=== PATIENT | female | born 1965 | race African-American/Black ===

== ENCOUNTER 2017-09-15 16:59 | Emergency (ER) | payer BC ==
--- NOTE | 2017-09-15 19:40 | RAD ---
RADIOGRAPH CHEST 1 VIEW: Date: 09/15/17 Time: 5:47 p.m. HISTORY: 52-year-old female with cough and dyspnea. COMPARISON: None available. FINDINGS: The cardiac size is at the upper limits of normal. There is pulmonary vascular engorgement. No yari pulmonary alveolar edema, air space density, or pneumothorax. No effacement of lateral costophrenic a ngles. IMPRESSION: 1. Pulmonary vascular congestion. 2. No evidence of pneumonia. SYLVIE [] POS: ESPERANZA
== END 2017-09-15 18:46 | disposition home or self-care (01) ==
LOC: ERS 16:59
DX: J18.9 Pneumonia, unspecified organism (principal); I10 Essential (primary) hypertension; F17.210 Nicotine dependence, cigarettes, uncomplicated
CPT/HCPCS: 71045

== ENCOUNTER 2018-07-22 10:17 | Observation (INO) | payer BC, SELFPAY ==
--- NOTE | 2018-07-22 11:04 | RAD ---
TWO VIEWS CHEST: Comparison: 09-15-17 History: Hypertension. FINDINGS: Two views of the chest show normal sized cardiomediastinal silhouette. There is no evidence of consol idation, mass, or pleural effusion. Degenerative changes are seen in the spine. IMPRESSION: No evidence of acute cardiopulmonary disease. POS: TPC
[2018-07-22 11:47] LABS: #Basophils 0.1 thou/uL (0.0-0.2); #Eosinphils 0.1 thou/uL (0.0-0.7); #Lymphocytes 2.3 thou/uL (1.20-3.40); #Monocytes 0.5 thou/uL (0.11-0.59); #Neutrophils 2.8 thou/uL (1.40-6.50); %Eosinophils 2.6 % (0.0-10.0); %Monocytes 8.8 % (0.0-10.0); %Neutrophils 48.6 % (42.0-75.0); Hemoglobin 14.2 g/dL (12.0-16.0); Mean Corpuscular HGB CONC 33.1 g/dL (32.0-36.0); Mean Corpuscular Hemoglobin 28.2 pg (27.0-31.0); Mean Corpuscular Volume 85.2 fL (78.0-98.0); Mean Platelet Volume 8.2 fL (7.4-10.4); Platelet Count 230 thou/uL (130-400); RBC Distribution Width 11.8 % (11.5-14.5); Red Blood Cell (RBC) Count 5.04 mill/uL (4.20-5.40); White Blood Cell (WBC) Count 5.8 thou/uL (4.8-10.8)
[2018-07-22 11:56] LABS: ALT (SGPT) 21 U/L (8-55); AST (SGOT) 18 U/L (5-34); Albumin 4.5 g/dL (3.5-5.0); Alkaline Phosphatase 102 U/L (40-150); Anion Gap 13 mmol/L (10-20); BUN (Urea Nitrogen) 13 mg/dL (9.8-20.1); Bilirubin, Total 0.4 mg/dL (0.2-1.2); Calc. Creatinine Clearance 0 mL/min (70-130); Calcium 9.7 mg/dL (7.8-10.44); Carbon Dioxide 24 mmol/L (22-29); Chloride 103 mmol/L (98-107); Estimated GFR-MDRD Greater than 90; Globulin 3.5 g/dL (2.4-3.5); Glucose 107 mg/dL (70-105); Potassium 3.7 mmol/L (3.5-5.1); Sodium 136 mmol/L (136-145)
[2018-07-22] MEDS ORDERED: Nitroglycerin 0.4 MG TAB 1 EACH ONE (11:57)
[2018-07-22] MEDS ORDERED: Aspirin 81 mg Enteric Coated Tablet ONE (11:57)
[2018-07-22 12:08] LABS: CK (CPK) 84 U/L (29-168)
[2018-07-22] MEDS ORDERED: Nitroglycerin 2% Ointment 1 INCH/1 GM Packet ONE (13:24)
[2018-07-22 15:01] LABS: Troponin I Less than 0.010 ng/mL (< 0.028)
[2018-07-22] MEDS ORDERED: Amlodipine 5 MG TAB PO SCH (17:15)
[2018-07-22 18:01] LABS: Troponin I Less than 0.010 ng/mL (< 0.028)
[2018-07-22] MEDS ORDERED: Acetaminophen 500 MG TAB PO PRN (20:53)
[2018-07-22] MEDS ORDERED: Acetaminophen 500 MG TAB ONE (21:10)
[2018-07-22 22:08] VITALS: BMI 36.6
--- NOTE | 2018-07-22 23:39 | HP ---
CHIEF COMPLAINT: Hypertension. HISTORY OF PRESENT ILLNESS: The patient is a pleasant 52-year-old female with past medical history significant for hypertension, noncompliant with her medications throughout the past year due to lack of insurance, hyperlipidemia, tobacco abuse, and family history of coronary artery disease, who presented to the hospital with complaints of high blood pressure. The patient was at work when she began feeling somewhat dizzy and "woozy." The patient works at [employer] and reported to the on-site nurse to have her blood pressure taken. At that time, her blood pressure was in the 190 systolic. She was instructed to lie down to see if her blood pressure improved. Repeat blood pressure showed a systolic reading of 198/101. The patient continued to feel somewhat dizzy, and was instructed to present to the emergency department for further workup and treatment. The patient did deny any chest pain or shortness of breath. She has had no palpitations. Upon arrival to the ED, workup included an EKG, which showed normal sinus rhythm with a ventricular rate of 73 beats per minute, and T-wave inversions in the lateral leads consistent with ischemia. She was given aspirin, sublingual nitroglycerin, and nitroglycerin paste, with good response in her blood pressure. Upon my interview with the patient, her blood pressure had trended down to 143/78, and she was resting comfortably. Her presenting symptoms of dizziness and presyncope have resolved. The patient states that she had previously been treated for hypertension, and believes that her medication was amlodipine. Previously, she had been on lisinopril, which did cause a cough for her. She also remembers being on a diuretic which I assume is hydrochlorothiazide. Due to lack of insurance, she had let these prescriptions laps, but continued to take the remaining pills p.r.n. when she felt her blood pressure was high or when she felt dizzy. REVIEW OF SYSTEMS: A 12-point review of systems was performed and is negative except that stated above. The patient denies any sick contacts. She has had no blood in her urine or stool. No fevers, chills, or recent illnesses. ALLERGIES: LISINOPRIL WHICH CAUSES A COUGH. HOME MEDICATIONS: The patient is taking no prescription medications at this time. PAST MEDICAL HISTORY: Significant for hypertension and hyperlipidemia. PAST SURGICAL HISTORY: Lipoma which was surgically excised from her back. SOCIAL HISTORY: The patient works at [employer], but previously had been out of work for about 6 months. She denies any illicit drug use. She occasionally drinks alcohol on the weekends. She does admit to tobacco abuse with a half to one pack per day current habit. FAMILY HISTORY: Significant for coronary artery disease in both her mother and her father who had MIs in the past and both had stents placed. They are no longer living. She had a brother who of complications from type 2 diabetes mellitus, she has a sister who also has coronary artery disease. CODE STATUS: The patient is a full code. This was discussed with the patient at length. PHYSICAL EXAMINATION: VITAL SIGNS: Blood pressure 143/78, pulse 73, O2 saturation 98% on room air. GENERAL: The patient is a moderately obese female, resting comfortably in bed, in no acute distress. HEENT: Head, atraumatic and normocephalic. Mucous membranes are moist. Extraocular movements intact. NECK: Trachea is midline. No JVD. No carotid bruits. CV: S1 and S2. Regular rate and rhythm. No appreciable murmurs, rubs, or gallops. LUNGS: Regular respiratory rate and pattern. Clear to auscultation bilaterally. ABDOMEN: Positive bowel sounds. Soft, nontender. No organomegaly. EXTREMITIES: +2 DP pulses bilaterally. Both lower extremities are warm and well perfused. No edema. SKIN: Warm and dry. No rashes. NEUROLOGIC: Cranial nerves 2 through 12 are grossly intact, the patient is nonfocal. LABORATORY RESULTS: White blood cell count 5.8, hemoglobin 14.2, hematocrit 43, platelet count is 230. Sodium 136, potassium 3.7, chloride 103, anion gap 13, BUN 13, creatinine 0.7, glucose 107. AST, ALT, and alkaline phosphatase within normal limits. Troponin negative x2. IMAGING: EKG as outlined in HPI shows sinus rhythm with ST depression consistent with lateral ischemia. Two-view chest x-ray shows no evidence of acute cardiopulmonary disease. ASSESSMENT: 1. Symptomatic hypertensive urgency. 2. Abnormal EKG with lateral ischemia. 3. Hyperlipidemia. 4. Tobacco abuse. 5. Family history of coronary artery disease. PLAN: The patient will be admitted for ACS rule out. We will continue to aggressively control her blood pressure, and reinstitute amlodipine 5 mg daily with the first dose being given now. We will also restart hydrochlorothiazide. Given her numerous risk factors and abnormal EKG, we will proceed with nuclear stress test. We will obtain fasting lipids in the morning along with A1c. Further recommendations based on hospital course. Job ID: [id number]
[2018-07-22] MEDS ORDERED: hydrALAZINE 20 MG/ML VIAL SLOW IVP PRN (23:55)
[2018-07-23 06:00] LABS: Hemoglobin A1c 5.4 % (4.0-6.0)
[2018-07-23 06:16] LABS: Cardiac Risk 3.7 (Less than 4.5)
[2018-07-23] MEDS ORDERED: ADENOSINE 60 MG/20 ML VIAL ONE (08:22)
[2018-07-23] MEDS ORDERED: Hydrochlorothiazide 25 MG TAB PO SCH (09:00)
[2018-07-23] MEDS ORDERED: Amlodipine 5 MG TAB PO SCH ×2 (09:00→14:30)
[2018-07-23] MEDS ORDERED: Losartan 25 MG TAB PO SCH (14:30)
--- NOTE | 2018-07-23 19:10 | PRG ---
DATE OF SERVICE: 07/23/2018 SUBJECTIVE: The patient is a pleasant 52-year-old female with past medical history significant for hypertension, previously noncompliant with her medications in the past year secondary to lack of insurance, hyperlipidemia, tobacco abuse, family history of coronary artery disease, who presented to the hospital with complaints of dizziness and high blood pressure. The patient has been admitted to the hospital with accelerated hypertension as well as abnormal EKG. She completed the first part of the imaging for her nuclear stress test this morning. Her blood pressure continues to be significantly elevated in the 170s to 180s, although the patient denies any headache or dizziness at that time. She denies any chest pain or shortness of breath. No nausea or vomiting. She is tolerating a full diet well. Denies any fever or chills. OBJECTIVE: VITAL SIGNS: Blood pressure 171/81, pulse is 85, O2 saturation is 100% on room air, and temperature 98.8. GENERAL: The patient is a moderately obese female, resting comfortably in bed, in no acute distress. HEENT: Head, atraumatic and normocephalic. Mucous membranes are moist. Extraocular movements intact. NECK: Trachea is midline. No JVD. No carotid bruits. CV: S1 and S2. Regular rate and rhythm. No appreciable murmurs, rubs, or gallops. LUNGS: Regular respiratory rate and pattern. Clear to auscultation bilaterally. ABDOMEN: Positive bowel sounds. Soft and nontender. No organomegaly. EXTREMITIES: +2 DP pulses bilaterally. Both lower extremities are warm and well perfused. No edema. SKIN: Warm and dry. No rashes. NEUROLOGIC: Cranial nerves 2 through 12 are intact. The patient is nonfocal. LABORATORY DATA: Hemoglobin A1c is 5.4%. Troponin was negative x3. Triglycerides 72, cholesterol 191, LDL 126, and HDL 51. ASSESSMENT: 1. Symptomatic accelerated hypertension at presentation, symptomatically improved, although blood pressures remain elevated. 2. Abnormal EKG with lateral ischemia. 3. Hyperlipidemia. 4. Tobacco abuse. 5. Family history of coronary artery disease. PLAN: We will continue to titrate the patient's blood pressure medications, and increase amlodipine to 10 mg daily. We will add losartan 50 mg daily along with her hydrochlorothiazide 12.5 mg daily. Hydralazine 25 mg t.i.d. scheduled, may also need to be added if she does not respond well to her other medications. We will await results of nuclear stress test, which the other images will be taken tomorrow morning. Anticipate discharge if her blood pressure has improved and stress test is negative. Care discussed with Dr. Castillo, who agrees with the above. Job ID: [id number]
[2018-07-23] MEDS: hydrALAZINE 25 MG TAB PO SCH (21:18)
[2018-07-24] MEDS ORDERED: Losartan 25 MG TAB PO SCH (09:00)
[2018-07-24] MEDS ORDERED: Amlodipine 10 MG TAB PO SCH (09:00)
[2018-07-24] MEDS: hydrALAZINE 25 MG TAB PO SCH ×2 (10:09→15:29)
[2018-07-24 12:08] VITALS: BP 171/81; TEMP 98.1
--- NOTE | 2018-07-24 14:17 | NM ---
MYOCARDIAL PERFUSION SCAN WITH SPECT IMAGING: HISTORY: EKG showing ischemia, accelerated hypertension. Smoker. Family history of coronary artery disease. TECHNIQUE/FINDINGS: This was done as a 2 day study using 29.2 mCi 99m-technetium sestamibi on the stress and 30.4 mCi on the resting images. There is decreased perfusion seen in the anterior wall of the left ventricle. Thi s becomes less prominent on the nonattenuated corrected images, but still is a difference as compared to the resting images, suggesting some anterior wall ischemic change. WALL MOTION: Symmetric contractility to the ventricle. LEFT VENTRICULAR EJECTION FRACTION: The calculated left ventricular ejection fraction is 55%. IMPRESSION: Findings that are suggestive of some anterior wall ischemic change. POS: ESPERANZA
--- NOTE | 2018-07-25 03:00 | DIS ---
DATE OF ADMISSION: 07/22/2018 DATE OF DISCHARGE: 07/24/2018 ALLERGIES: LISINOPRIL, WHICH CAUSES COUGH. CHIEF COMPLAINT: High blood pressure and dizziness. FINAL DIAGNOSES: 1. Dizziness secondary to accelerated hypertension, resolved. 2. Hypertension, noncompliant with medications. 3. Abnormal myocardial perfusion imaging showing possible anterior wall ischemia. 4. Tobacco abuse. 5. Family history of coronary artery disease. PROCEDURES PERFORMED: None. LABORATORY RESULTS: White blood cell count 5.8, hemoglobin 14.2, hematocrit 43 , and platelet count 230. Sodium 136, potassium 3.7, BUN 13, creatinine 0.71, and glucose 107. Hemoglobin A1c 5.4. AST, ALT, and alkaline phosphatase, all within normal limits. Serial troponins were negative. Triglycerides 72, cholesterol 191, LDL 126, and HDL 51. IMAGING RESULTS: Myocardial perfusion imaging, which was a two-day study showed findings that are suggestive of some anterior wall ischemic change. Normal left ventricular systolic function with EF of 55%. Chest x-ray showed no evidence of acute cardiopulmonary disease. CONSULTATIONS: None. VITAL SIGNS: Blood pressure 140/82, pulse 89, respirations 15, and O2 saturation 97%. HOSPITAL COURSE: The patient is a pleasant 52-year-old female with past medical history significant for hypertension, noncompliant with her medications throughout the past year due to lack of insurance; hyperlipidemia; and tobacco abuse along with family history of coronary artery disease, who presented to the hospital with complaints of high blood pressure. 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 Because of her dizziness, she went to the nurse, who was on site, who took her blood pressure and noted it to be 190 systolic. She was instructed to lie down to see if her blood pressure improve, but her repeat blood pressure showed reading of 198/101. Because the patient continued to feel somewhat dizzy, she was instructed to present to the emergency department for further workup and treatment. The patient denied any cardiac symptoms of chest pain or shortness of breath. She had no palpitations. EKG on arrival to the ED showed normal sinus rhythm with a ventricular rate of 73 beats per minute and T-wave inversions in the lateral leads consistent with ischemia. She was given aspirin , sublingual nitroglycerin, and nitroglycerin paste, which did help to bring her blood pressure down. The patient was admitted for ACS rule out. Her serial troponins were all negative. Her blood pressure remained significantly elevated, and was eventually controlled with losartan 50 mg/12.5 hydrochlorothiazide, hydralazine 25 mg t.i.d., and amlodipine 10 mg daily, which the patient had been on previously. Given her risk factors and abnormal EKG, MPI was performed, which is a two-day study. She did have some anterior wall ischemia noted, and this was discussed with Dr. Nunez, the radiologist. The patient overall throughout her hospital stay has felt more and more improved as her blood pressure has been controlled. She has no chest pain or shortness of breath or nausea or vomiting. Her appetite has been good. 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 She feels very well today. PHYSICAL EXAMINATION: GENERAL: The patient is a moderately obese, well-appearing female, in no acute distress. HEENT: Atraumatic and normocephalic. Mucous membranes are moist. NECK: Supple. No lymphadenopathy. No carotid bruits. Trachea is midline. RESPIRATORY: Regular respiratory rate and pattern. Clear to auscultation bilaterally. CV: S1 and S2. Regular rate and rhythm. No appreciable murmurs, rubs, or gallops. GI: Soft and nontender. Normal bowel sounds. LOWER EXTREMITIES: No edema. +2 DP pulses bilaterally. NEUROLOGIC: Awake and alert, oriented x3. Cranial nerves 2 through 12 are intact. Nonfocal. SKIN: Warm and dry. No rashes noted. CONDITION AT DISCHARGE: Stable. DISCHARGE MEDICATIONS: 1. Aspirin 81 mg daily. 2. Lipitor 20 mg at bedtime. 3. Losartan/hydrochlorothiazide 50/12.5 mg daily. 4. Hydralazine 25 mg t.i.d. DISCHARGE DISPOSITION: Home. PLAN: The findings of the patient's MPI were discussed at length with the patient including her options. The patient has no cardiac symptoms at this time, and after extensive discussion, the patient opts for medical therapy at this time and outpatient followup with Cardiology. The risks and benefits of this decision had been discussed with the patient at length. I have also discussed this case with Dr. Castillo as well, who agrees with medical therapy for the patient at this time. The patient will be discharged today in good condition with aspirin and statin therapy along with her blood pressure medicines. She will continue aggressive risk factor modification including tobacco cessation. She will return to the emergency department if she experiences any cardiac symptoms. When the patient receives health insurance on 08/03, she will follow up with both PCP and Cardiology as an outpatient. Once again, care was discussed with Dr. Castillo, who agrees with the above. Job ID: [id number] MTDD
== END 2018-07-24 15:43 | disposition home or self-care (01) ==
LOC: ERS 10:17 → ERHOLD 13:40 → 2SW 21:49
PROVIDERS: ADMIT Internal Medicine; ATTEND Internal Medicine
DX: I16.0 Hypertensive urgency (principal); I10 Essential (primary) hypertension; E78.5 Hyperlipidemia, unspecified; F17.210 Nicotine dependence, cigarettes, uncomplicated; Z91.14 Patient's other noncompliance with medication regimen; Z88.8 Allergy status to other drugs, medicaments and biological substances
CPT/HCPCS: 36415; 71046; 78452; 80053; 80061; 82550; 83036; 84484; 85025; 93005; 93017; 94760; 96374; A9500; G0378; J0153; J0360

== ENCOUNTER 2018-12-22 11:24 | Outpatient (CLI) | payer BC ==
--- NOTE | 2018-12-22 12:02 | RAD ---
2 views lumbar spine: 12/22/2018 COMPARISON: None HISTORY: Bilateral leg pain for 3 weeks FINDINGS: There is facet hypertrophy at L5-S1 and to a lesser degree, L4-5. There is mild anterolisth esis of L5 on S1 measuring approximately 6 mm. The lumbar pedicles appear intact on frontal imaging. There is lateral osteophyte formation at multip le levels within the lumbar spine, most prominent on the left at L1-2 and L2-3 and on the right at L3-4. No acute fracture is evident. IMPRESSION: Multilevel degenerative change within the lumbar spine, most significant finding being bi lateral L5-S1 facet hypertrophy with mild anterolisthesis of L5 on S1.
--- NOTE | 2018-12-22 12:03 | RAD ---
Left knee 4 views: 12/22/2018 COMPARISON: None HISTORY: Bilateral leg pain, no history of trauma FINDINGS: Mild lateral compartment narrowing with osteophyte formation of the lateral femoral condyle and lateral tibial plateau. No knee joint effusion. Moderate patellofemoral joint space narrowing and medial compartment joint space narrowing. There is posterior patellar osteophyte formation as wel l as osteophyte formation of the medial femoral condyle and medial tibial plateau. No acute fracture or dislocation. IMPRESSION: Multicompartment degenerative joint disease. No acute fracture or dislocation.
--- NOTE | 2018-12-22 12:05 | RAD ---
4 views right knee: 12/22/2018 COMPARISON: None HISTORY: Knee pain, leg pain FINDINGS: Mild lateral compartment narrowing with osteophyte formation of the lateral tibial plateau. There is moderate medial compartment narrowing with osteophyte formation of the medial femoral condyle and medial tibial plateau. No displaced fracture or dislocation. No significant knee joint ef fusion. There is mild patellofemoral joint space with posterior patellar osteophyte formation. IMPRESSION: No acute osseous abnormality. Multicompartment degenerative joint disease.
== END 2018-12-22 11:25 | disposition home or self-care (01) ==
LOC: BICRAD 11:24
PROVIDERS: ATTEND Physician Assistant
DX: M79.605 Pain in left leg (principal); M79.604 Pain in right leg; M17.0 Bilateral primary osteoarthritis of knee; M47.816 Spondylosis without myelopathy or radiculopathy, lumbar region; M43.17 Spondylolisthesis, lumbosacral region; M51.87 Other intervertebral disc disorders, lumbosacral region
CPT/HCPCS: 72100

== ENCOUNTER 2018-12-27 15:15 | Outpatient (CLI) | payer BC ==
--- NOTE | 2018-12-28 09:09 | MMO ---
Bilateral MAMMO Bilat Screen [facility]. CLINICAL HISTORY: Patient is 53 years old and is seen for screening. VIEWS: The views performed were: . This study has been interpreted with the assistance of computer-aided detection. MAMMOGRAM FINDINGS: There are scattered fibroglandular densities. Finding 1: There are benign appearing calcifications seen in both breasts. Finding 2: Axillary regions on MLO excluded. Need to repeat bilaterally. IMPRESSION: FINDING 1: CALCIFICATIONS IN BOTH BREASTS ARE BENIGN. FINDING 2: FINDINGS IN BOTH BREASTS REQUIRE ADDITIONAL EVALUATION. ADDITIONAL PROJECTIONS (BILATERAL MEDIOLATERAL OBLIQUE) ARE RECOMMENDED. THE RESULTS OF THIS EXAM WERE SENT TO THE PATIENT. ACR BI-RADS Category 0 - Incomplete: Need additional imaging evaluation. [facility] will notify the patient of the need for additional imaging services. MAMMOGRAPHY NOTE: 1. A negative mammogram report should not delay a biopsy if a dominant of clinically suspicious mass is present. 2. Approximately 10% to 15% of breast cancers are not detected by mammography. 3. Adenosis and dense breasts may obscure an underlying neoplasm. Reported by: JAYMIE MILAN MD Electonically Signed: [id number]
== END 2018-12-27 15:16 | disposition home or self-care (01) ==
LOC: BICMAMMO 15:15
PROVIDERS: ATTEND Physician Assistant
DX: Z12.31 Encounter for screening mammogram for malignant neoplasm of breast (principal); R92.1 Mammographic calcification found on diagnostic imaging of breast
CPT/HCPCS: 77063; 77067

== ENCOUNTER 2020-09-19 09:35 | Emergency (ER) | payer SELFPAY ==
[2020-09-19 10:59] LABS: #Basophils 0.1 thou/uL (0.0-0.2); #Eosinphils 0.2 thou/uL (0.0-0.7); #Lymphocytes 2.4 thou/uL (1.20-3.40); #Monocytes 0.3 thou/uL (0.11-0.59); #Neutrophils 2.6 thou/uL (1.40-6.50); %Basophils 1.3 % (0.0-1.0); %Eosinophils 3.1 % (0.0-10.0); %Lymphocytes 43.3 % (21.0-51.0); %Neutrophils 46.3 % (42.0-75.0); Hemoglobin 13.8 g/dL (12.0-16.0); Mean Corpuscular HGB CONC 33.9 g/dL (32.0-36.0); Mean Corpuscular Hemoglobin 28.5 pg (27.0-31.0); Mean Corpuscular Volume 83.9 fL (78.0-98.0); Mean Platelet Volume 7.9 fL (7.4-10.4); Platelet Count 276 thou/uL (130-400); RBC Distribution Width 11.7 % (11.5-14.5); Red Blood Cell (RBC) Count 4.86 mill/uL (4.20-5.40); White Blood Cell (WBC) Count 5.6 thou/uL (4.8-10.8)
[2020-09-19] MEDS ORDERED: Lorazepam 1 MG TAB ONE (11:07)
[2020-09-19 11:26] LABS: ALT (SGPT) 34 U/L (8-55); AST (SGOT) 21 U/L (5-34); Albumin 4.4 g/dL (3.5-5.0); Alkaline Phosphatase 106 U/L (40-110); Anion Gap 14 mmol/L (10-20); BUN (Urea Nitrogen) 14 mg/dL (9.8-20.1); Bilirubin, Total 0.4 mg/dL (0.2-1.2); Calc. Creatinine Clearance 0 mL/min (70-130); Calcium 9.7 mg/dL (7.8-10.44); Carbon Dioxide 21 mmol/L (22-29); Chloride 108 mmol/L (98-107); Globulin 3.2 g/dL (2.4-3.5); Glucose 122 mg/dL (70-105); Magnesium 1.9 mg/dL (1.6-2.6); Potassium 3.6 mmol/L (3.5-5.1); Protein, Total 7.6 g/dL (6.0-8.3); Sodium 139 mmol/L (136-145)
[2020-09-19] MEDS ORDERED: carBAMazepine 100 mg Chewable Tablet PO SCH (11:30)
== END 2020-09-19 13:02 | disposition home or self-care (01) ==
LOC: ERS 09:35
DX: G50.0 Trigeminal neuralgia (principal); I10 Essential (primary) hypertension; M19.90 Unspecified osteoarthritis, unspecified site; F17.210 Nicotine dependence, cigarettes, uncomplicated; Z79.899 Other long term (current) drug therapy; Z79.82 Long term (current) use of aspirin
CPT/HCPCS: 36415; 80053; 83735; 85025; 99283

== ENCOUNTER 2020-10-03 11:46 | Emergency (ER) | payer SELFPAY ==
[2020-10-03] MEDS ORDERED: Ketorolac Tromethamine 30 MG/ML VIAL ONE (12:44)
[2020-10-03 13:15] LABS: #Basophils 0.1 thou/uL (0.0-0.2); #Eosinphils 0.2 thou/uL (0.0-0.7); #Lymphocytes 2.3 thou/uL (1.20-3.40); #Monocytes 0.4 thou/uL (0.11-0.59); #Neutrophils 2.4 thou/uL (1.40-6.50); %Basophils 1.2 % (0.0-1.0); %Eosinophils 3.2 % (0.0-10.0); %Lymphocytes 42.8 % (21.0-51.0); %Monocytes 8.1 % (0.0-10.0); %Neutrophils 44.7 % (42.0-75.0); Hemoglobin 13.7 g/dL (12.0-16.0); Mean Corpuscular HGB CONC 34.4 g/dL (32.0-36.0); Mean Corpuscular Hemoglobin 28.7 pg (27.0-31.0); Mean Corpuscular Volume 83.4 fL (78.0-98.0); Mean Platelet Volume 7.9 fL (7.4-10.4); Platelet Count 259 thou/uL (130-400); RBC Distribution Width 11.5 % (11.5-14.5); Red Blood Cell (RBC) Count 4.78 mill/uL (4.20-5.40); White Blood Cell (WBC) Count 5.4 thou/uL (4.8-10.8)
[2020-10-03 13:28] LABS: ALT (SGPT) 50 U/L (8-55); AST (SGOT) 28 U/L (5-34); Albumin 4.6 g/dL (3.5-5.0); Alkaline Phosphatase 115 U/L (40-110); Anion Gap 17 mmol/L (10-20); BUN (Urea Nitrogen) 17 mg/dL (9.8-20.1); Bilirubin, Total 0.2 mg/dL (0.2-1.2); Calc. Creatinine Clearance 0 mL/min (70-130); Calcium 9.7 mg/dL (7.8-10.44); Carbon Dioxide 20 mmol/L (22-29); Chloride 106 mmol/L (98-107); Globulin 3.3 g/dL (2.4-3.5); Glucose 101 mg/dL (70-105); Potassium 3.6 mmol/L (3.5-5.1); Protein, Total 7.9 g/dL (6.0-8.3); Sodium 139 mmol/L (136-145)
== END 2020-10-03 14:05 | disposition home or self-care (01) ==
LOC: ERS 11:46
DX: R51.9 Headache, unspecified (principal); F17.210 Nicotine dependence, cigarettes, uncomplicated; M19.90 Unspecified osteoarthritis, unspecified site; Z79.82 Long term (current) use of aspirin; Z79.899 Other long term (current) drug therapy
CPT/HCPCS: 70486; 80053; 85025; 96374; J1885

== ENCOUNTER 2021-02-07 14:15 | Outpatient (CLI) | payer OTHER | END 2021-02-07 14:16 | disposition home or self-care (01) | LOC: BICMAMMO 14:15 | PROVIDERS: ATTEND Nurse Practitioner Family | DX: Z12.31 Encounter for screening mammogram for malignant neoplasm of breast (principal); Z80.3 Family history of malignant neoplasm of breast | CPT/HCPCS: 77063; 77067 ==

== ENCOUNTER 2021-09-10 08:57 | Outpatient (CLI) | payer OTHER ==
[2021-09-10] MEDS ORDERED: Iopamidol 370 76% 100 ML VIAL ONE (09:23)
[2021-09-10 09:28] LABS: Estimated GFR-MDRD - POC Greater than 90
== END 2021-09-10 08:58 | disposition home or self-care (01) ==
LOC: BICCT 08:57
PROVIDERS: ATTEND Physician Assistant
DX: K42.9 Umbilical hernia without obstruction or gangrene (principal); N28.1 Cyst of kidney, acquired
CPT/HCPCS: 74160; 82565; Q9967

== ENCOUNTER 2022-04-16 13:59 | Outpatient (CLI) | payer OTHER | END 2022-04-16 14:00 | disposition home or self-care (01) | LOC: BICMAMMO 13:59 | PROVIDERS: ATTEND Nurse Practitioner Family | DX: Z12.31 Encounter for screening mammogram for malignant neoplasm of breast (principal); Z80.3 Family history of malignant neoplasm of breast | CPT/HCPCS: 77063; 77067 ==

== ENCOUNTER 2022-05-20 13:25 | Outpatient (CLI) | payer OTHER ==
[~2022-05-20 13:25] MED LIST: Magnevist 469MG/ML 20 ML VIAL ONE
== END 2022-05-20 13:26 | disposition home or self-care (01) ==
LOC: MRI 13:25
PROVIDERS: ATTEND Psychiatry & Neurology Neurology
DX: G44.209 Tension-type headache, unspecified, not intractable (principal); I67.82 Cerebral ischemia
CPT/HCPCS: 70553; A9579

== ENCOUNTER 2022-07-21 09:45 | Emergency (ER) | payer OTHER ==
[2022-07-21] MEDS ORDERED: Ketorolac Tromethamine 30 MG/ML VIAL ONE (10:44)
== END 2022-07-21 12:52 | disposition home or self-care (01) ==
LOC: ERS 09:45
DX: M25.562 Pain in left knee (principal); I10 Essential (primary) hypertension; F17.210 Nicotine dependence, cigarettes, uncomplicated; Z79.82 Long term (current) use of aspirin
CPT/HCPCS: 96372; J1885

== ENCOUNTER 2023-05-14 14:37 | Outpatient (CLI) | payer OTHER | END 2023-05-14 14:38 | disposition home or self-care (01) | LOC: BICMAMMO 14:37 | PROVIDERS: ATTEND Nurse Practitioner Family | DX: Z12.31 Encounter for screening mammogram for malignant neoplasm of breast (principal); Z80.3 Family history of malignant neoplasm of breast | CPT/HCPCS: 77063; 77067 ==

== ENCOUNTER 2025-02-21 12:29 | Outpatient (CLI) | payer OTHER | END 2025-02-21 12:30 | disposition home or self-care (01) | LOC: BICMAMMO 12:29 | PROVIDERS: ATTEND Nurse Practitioner Family | DX: Z12.31 Encounter for screening mammogram for malignant neoplasm of breast (principal); Z80.3 Family history of malignant neoplasm of breast | CPT/HCPCS: 77063; 77067 ==